=== PATIENT | male | born 2000 | race Caucasian/White ===

== ENCOUNTER 2024-05-29 12:15 | Emergency (ER) | payer OTHER ==
[2024-05-29] MEDS ORDERED: diphenhydrAMINE 25 MG CAP ONE ×2 (13:10→13:15)
[2024-05-29] MEDS ORDERED: predniSONE 50 MG TAB PO SCH (13:30)
[2024-05-29] MEDS ORDERED: Famotidine 20 MG TAB ONE (13:31)
[2024-05-29] MEDS ORDERED: predniSONE 20 MG TAB ONE (13:32)
== END 2024-05-29 14:40 | disposition home or self-care (01) ==
LOC: ERS 12:15
DX: S00.561A Insect bite (nonvenomous) of lip, initial encounter (principal); T78.40XA Allergy, unspecified, initial encounter; W57.XXXA Bitten or stung by nonvenomous insect and other nonvenomous arthropods, initial encounter
CPT/HCPCS: 99283; J7512